=== PATIENT | female | born 1970 | race Caucasian/White ===

== ENCOUNTER → 2017-09-29 | Outpatient (CLI) | payer BC ==
[~2017-09-29] MED LIST: AMLO5TAB2 PO; ASPI-496 PO; CARB200T4 PO; CARI1.5C2 PO; CHOL500050 PO; CLON-365 PO; GABA300C10 PO; HYDR200T72 PO; METH2.5T PO; METH25VI INJ; NABU500T PO; OMEP40CA6 PO; PROP10TA PO; ROSU10TA PO; SUVO20TA PO
== END ==
LOC: STAR 13:44
PROVIDERS: ATTEND Orthopaedic Surgery
DX: Z02.9 Encounter for administrative examinations, unspecified (principal)

== ENCOUNTER 2017-10-07 09:42 | Day surgery (SDC) | payer BC ==
[2017-09-29 15:10] VITALS: BP 132/87
[~2017-10-07] VITALS: Ht 167.6 cm; Wt 101.2 kg
[~2017-10-07 09:42] MED LIST changes: +BUPIVACAINE/PF 0.5% ONE; +EPINEPHRINE 1 MG/ML, 1ML ONE; +LIDOCAINE/PF 0.5% ,50ML ONE
[2017-10-07] MEDS ORDERED: LACTATED RINGERS 1,000 ML IV SCH (09:58)
[2017-10-07] MEDS ORDERED: ONDANSETRON ODT 8 MG PO ONE (10:00)
[2017-10-07] MEDS ORDERED: DIAZEPAM 5 MG TABLET PO ONE (10:00)
[2017-10-07] MEDS ORDERED: SCOPOLAMINE PATCH, 1.5MG PATCH.TD72 TD ONE ×2 (10:00)
[2017-10-07] MEDS ORDERED: ACETAMINOPHEN 500 MG TABLET PO ONE (10:00)
[2017-10-07] MEDS ORDERED: OxyconTIN ER 20 MG TAB.ER PO ONE (10:00)
[2017-10-07] MEDS ORDERED: DIAZEPAM 5 MG TABLET ONE (10:02)
[2017-10-07] MEDS ORDERED: ONDANSETRON ODT 4 MG ONE (10:03)
[2017-10-07] MEDS ORDERED: OxyconTIN ER 20 MG TAB.ER ONE (10:04)
[2017-10-07] MEDS ORDERED: FENTANYL PF 100 MCG/2ML ONE (10:05)
[2017-10-07] MEDS ORDERED: MIDAZOLAM 1 MG/ML, 2ML ONE (10:05)
[2017-10-07] MEDS ORDERED: ACETAMINOPHEN 500 MG TABLET ONE (10:05)
[2017-10-07] MEDS ORDERED: LIDOCAINE GEL 2%, 5ML ONE (10:09)
[2017-10-07] MEDS ORDERED: SUCCINYLCHOLINE 20 MG/ML, 10ML ONE (10:53)
[2017-10-07] MEDS ORDERED: ROCURONIUM 10 MG/ML,10ML ONE (10:53)
[2017-10-07] MEDS ORDERED: TEMPLATE NON-FORMULARY MED. (Suvorexant (Belsomra) 20 MG) PO SCH (11:00)
[2017-10-07] MEDS ORDERED: TEMPLATE NON-FORMULARY MED. (Cholecalciferol (Vitamin D3)** (Vitamin D3**) 50,000 UNIT) PO SCH (11:00)
[2017-10-07] MEDS ORDERED: [UNRECOGNIZED DRUG - OTHER] INJ SCH (11:00)
[2017-10-07] MEDS ORDERED: METHOTREXATE SODIUM INJ SCH (11:00)
[2017-10-07] MEDS ORDERED: PROPOFOL 10 MG/ML, 20ML ONE (11:18)
[2017-10-07] MEDS ORDERED: KETOROLAC 30 MG/1 ML ONE (11:18)
[2017-10-07] MEDS ORDERED: DEXAMETHASONE 4 MG/ML, 1ML ONE (11:18)
[2017-10-07] MEDS ORDERED: CEFAZOLIN 1,000 MG ONE (11:18)
[2017-10-07] MEDS ORDERED: ONDANSETRON 2MG/ML, 2ML ONE (11:18)
[2017-10-07] MEDS ORDERED: MEPERIDINE/PF 50 MG/ML ONE (11:19)
[2017-10-07] MEDS ORDERED: OXYcodone 5 MG/5 ML ORAL.SOL UDC PO PRN (11:30)
[2017-10-07] MEDS ORDERED: ALBUTEROL SULFATE 2.5 MG/3 ML NPPB PRN (11:30)
[2017-10-07] MEDS ORDERED: MEPERIDINE/PF 25MG/0.5ML IVPush PRN (11:30)
[2017-10-07] MEDS ORDERED: METOCLOPRAMIDE 5 MG/ML, 2ML IV PRN (11:30)
[2017-10-07] MEDS ORDERED: hydrALAzine 20 MG/ML, 1ML IV PRN (11:30)
[2017-10-07] MEDS ORDERED: PROMETHAZINE 12.5 MG SUPP PR PRN (11:30)
[2017-10-07] MEDS ORDERED: LABETALOL 5MG/ML, 20ML IV PRN (11:30)
[2017-10-07] MEDS ORDERED: LORazepam 2 MG/ML, 1ML IVPush PRN (11:30)
[2017-10-07] MEDS ORDERED: ALBUTEROL/IPRATROPIUM 2.5MG/0.5MG, 3 ML NPPB PRN (11:30)
[2017-10-07] MEDS ORDERED: ONDANSETRON 2MG/ML, 2ML IVPush PRN (11:30)
[2017-10-07] MEDS ORDERED: PROMETHAZINE 25 MG/ML, 1ML IV PRN (11:30)
[2017-10-07] MEDS ORDERED: morphine SULFATE 10 MG/ML, 1ML IV PRN (11:30)
[2017-10-07] MEDS ORDERED: FENTANYL PF 100 MCG/2ML IV PRN (11:30)
[2017-10-07] MEDS ORDERED: MIDAZOLAM 1 MG/ML, 2ML IV PRN (11:30)
[2017-10-07] MEDS ORDERED: DIAZEPAM 5 MG/ML, 2ML IVPush PRN (11:30)
[2017-10-07] MEDS ORDERED: HYDROcodone/APAP 10/325 MG TABLET ONE (13:31)
[2017-10-07] MEDS ORDERED: PROPRANOLOL 10 MG TABLET PO SCH (16:00)
[2017-10-07] MEDS ORDERED: GABAPENTIN 300 MG CAPSULE PO SCH (16:00)
[2017-10-07] MEDS ORDERED: TEMPLATE NON-FORMULARY MED. (Rosuvastatin Calcium** (Crestor**) 10 MG) PO SCH (21:00)
[2017-10-07] MEDS ORDERED: HYDROXYCHLOROQUINE 200 MG TABLET PO SCH (21:00)
[2017-10-07] MEDS ORDERED: NABUMETONE 500 MG TABLET PO SCH (21:00)
[2017-10-07] MEDS ORDERED: CARBAMAZEPINE 200 MG TABLET PO SCH (21:00)
[2017-10-08] MEDS ORDERED: TEMPLATE NON-FORMULARY MED. (Omeprazole** 40 MG) PO SCH (09:00)
[2017-10-08] MEDS ORDERED: AMLODIPINE 5 MG TABLET PO SCH (09:00)
[2017-10-08] MEDS ORDERED: CARIPRAZINE HCL 1.5 MG PO SCH (09:00)
[2017-10-08] MEDS ORDERED: ASPIRIN 81 MG TABLET EC PO SCH (09:00)
== END 2017-10-07 14:10 ==
LOC: OUT 09:42
PROVIDERS: ATTEND Orthopaedic Surgery
DX: S43.432A Superior glenoid labrum lesion of left shoulder, initial encounter (principal); M75.112 Incomplete rotator cuff tear or rupture of left shoulder, not specified as traumatic; M19.012 Primary osteoarthritis, left shoulder; J45.909 Unspecified asthma, uncomplicated; K21.9 Gastro-esophageal reflux disease without esophagitis; I10 Essential (primary) hypertension; M75.42 Impingement syndrome of left shoulder; E78.5 Hyperlipidemia, unspecified; I25.10 Atherosclerotic heart disease of native coronary artery without angina pectoris; X58.XXXA Exposure to other specified factors, initial encounter; Y93.89 Activity, other specified; Y92.89 Other specified places as the place of occurrence of the external cause; Y99.8 Other external cause status; Z87.39 Personal history of other diseases of the musculoskeletal system and connective tissue; Z88.5 Allergy status to narcotic agent; Z88.0 Allergy status to penicillin; Z87.891 Personal history of nicotine dependence; Z79.82 Long term (current) use of aspirin
CPT/HCPCS: 29823; 29824; 29826; J0171; J0330; J0690; J1100; J1885; J2001; J2175; J2250; J2405; J2704; J3010; J3490; J7120; Q0162